=== PATIENT | female | born 1985 | race Caucasian/White ===

== ENCOUNTER 2018-01-12 23:44 | Emergency (ER) | payer OTHER ==
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
[2018-01-13 00:02] VITALS: TEMP 98.2
[2018-01-13 00:10] VITALS: RESP 16
[2018-01-13] MEDS ORDERED: ACETAMINOPHEN 500 MG TAB PO ONE (00:30)
[2018-01-13 00:42] VITALS: BP 101/68; PULSE 101; O2SAT 96
== END 2018-01-13 00:42 | disposition home or self-care (01) ==
DX: S09.90XA Unspecified injury of head, initial encounter (principal); V48.5XXA Car driver injured in noncollision transport accident in traffic accident, initial encounter; Y99.8 Other external cause status; Y93.89 Activity, other specified